=== PATIENT | male | born 2000 | race African-American/Black ===

== ENCOUNTER 2022-06-26 14:04 | Emergency (ER) | payer OTHER, SELFPAY ==
[2022-06-26 14:26] VITALS: BP 128/68; PULSE 81; RESP 16; TEMP 36.6; O2SAT 100
--- NOTE | 2022-06-26 14:42 | ED.URI ---
HPI - URI/Sore Throat General Chief Complaint: Upper Respiratory Infection Stated Complaint: Cough/ Eyes Irritation Time Seen by Provider: 06/26/22 14:43 Source: patient Mode of arrival: ambulatory Limitations: no limitations History of Present Illness HPI Narrative: 22-year-old male with history of autism presents with this mom with complaint of cough, runny nose, itchy eyes for 2-3 days. Patient's father has been giving him allergy medication. Mom reports that today eyes are very red, with yellow drainage. Mom reports that she has pneumonia and is concerned that patient got pneumonia from her. Patient denies chest pain and shortness of breath. Afebrile. All systems reviewed and negative except as noted above. Related Data Home Medications Medication Instructions Recorded Confirmed clindamycin 1.2 % (1 % 1 applic topical DIRECTED 06/26/22 06/26/22 base)-benzoyl peroxide 5 % topical gel tretinoin 0.05 % topical cream 1 applic topical DIRECTED 06/26/22 06/26/22 Allergies Allergy/AdvReac Type Severity Reaction Status Date / Time grape Allergy Mild RASH Verified 06/26/22 14:24 Review of Systems Review of Systems: CONSTITUTIONAL: Denies fever, chills, or sweats. EYES: Denies visual changes. Reports redness, or discharge. ENT: Reports rhinorrhea, congestion. Denies sore throat, or otalgia. CARDIOVASCULAR: Denies chest pain, palpitations, or edema. RESPIRATORY: reports cough. Denies dyspnea. GASTROINTESTINAL: Denies abdominal pain, nausea, vomiting, or diarrhea. GENITOURINARY: Denies dysuria or hematuria. SKIN: Denies rash or itching. MUSCULOSKELETAL: Denies back pain, joint pain, or myalgia. NEUROLOGIC: Denies headache, numbness, or weakness. PSYCHIATRIC: Denies anxiety or depression. All other systems reviewed are negative, except as documented in HPI. PMFSH Comments At time of signature, agree with nursing past medical, surgical, social and family history. There is no relevant family history pertinent to the presenting complaint. Exam Narrative: GENERAL: This is a well-nourished, well-developed patient, in no apparent distress. HEAD: normocephalic, atraumatic. EYES: PERRL. Sclera And conjunctiva erythematous, yellow drainage. Vision is grossly intact. EARS: External ears normal, auditory canals clear and without drainage, TMs normal without perforation. Hearing grossly intact. NOSE: External nose normal with clear nasal drainage. THROAT: Mucous membranes moist, posterior pharynx clear. NECK: Neck supple, non-tender without lymphadenopathy, masses or thyromegaly. CARDIOVASCULAR: Regular rate and rhythm without murmurs, gallops, or rubs. RESPIRATORY: Clear to auscultation. Breath sounds equal bilaterally. No wheezes, rales, or rhonchi. SKIN: warm, Dry, intact with no suspicious lesions or rash, good texture and turgor. NEURO: awake, alert, and oriented to person, place and time. There were no obvious focal neurologic abnormalities. EXTREMITIES: No joint tenderness, effusion, or edema noted. Course Course Level of Care: Express Care Visit Vital Signs Vital signs: Vital Signs Temperature 36.6 C 06/26/22 14:26 Pulse Rate 81 06/26/22 14:26 Respiratory Rate 16 06/26/22 14:26 Blood Pressure 128/68 06/26/22 14:26 Pulse Oximetry 100 06/26/22 14:26 Oxygen Delivery Room Air 06/26/22 14:26 Temperature 36.6 C 06/26/22 14:26 Pulse Rate 81 06/26/22 14:26 Respiratory Rate 16 06/26/22 14:26 Blood Pressure 128/68 06/26/22 14:26 Pulse Oximetry 100 06/26/22 14:26 Oxygen Delivery Room Air 06/26/22 14:26 Reviewed MDM - URI/Sore Throat MDM Narrative Medical decision making narrative: Patient is aware of diagnosis, understands and agrees to treatment plan. Anticipatory guidance given. Patient agrees to follow-up as directed and is aware of reasons to seek care at the emergency department. Portions of this record may have been created with voice recog
== END 2022-06-26 14:58 | disposition home or self-care (01) ==
PROVIDERS: Emergency Provider Nurse Practitioner Family; PCP Pediatrics
DX: H10.33 Unspecified acute conjunctivitis, bilateral (principal); J22 Unspecified acute lower respiratory infection; Z20.818 Contact with and (suspected) exposure to other bacterial communicable diseases; F84.0 Autistic disorder
CPT/HCPCS: 99213; G0463